=== PATIENT | female | born 1950 | race Caucasian/White ===

== ENCOUNTER 2017-10-05 07:58 | Emergency (ER) | payer MEDICARE, MEDICAID ==
[~2017-10-05] VITALS: Ht 162.6 cm; Wt 66.0 kg
[~2017-10-05 07:58] MED LIST: LEVO50TA5 PO; LOSA1TAB19 PO; METF10002 PO; OMEP40CA6 PO; TRAZ50TA18 PO
[2017-10-05 08:00] VITALS: BP 145/80
[2017-10-05] MEDS ORDERED: morphine SULFATE 10 MG/ML, 1ML ONE (08:53)
[2017-10-05] MEDS ORDERED: ONDANSETRON 2MG/ML, 2ML ONE (08:53)
[2017-10-05] MEDS ORDERED: SODIUM CHLORIDE 0.9% 1,000ML IVBOLUS ONE (09:00)
[2017-10-05] MEDS ORDERED: MORPHINE SULFATE 4 MG/ML, 1ML IVPush PRN (09:00)
[2017-10-05] MEDS ORDERED: ONDANSETRON 2MG/ML, 2ML IVPush ONE (09:00)
[2017-10-05 09:08] LABS: PATH.CAST-FLAG NOT PRESENT; SPERM-FLAG NOT PRESENT; SRC-FLAG NOT PRESENT; XTAL-FLAG NOT PRESENT; YLC-FLAG NOT PRESENT
[2017-10-05 09:16] LABS: HEMATOCRIT 39.6 % (34.6-47.8); HEMOGLOBIN 13.8 g/dL (11.7-16.4); WHITE BLOOD COUNT 8.1 x10^3/uL (3.4-10)
[2017-10-05 09:25] LABS: BLOOD UREA NITROGEN 14 mg/dL (7-18)
[2017-10-05] MEDS ORDERED: LOSA25TA5 PO (09:25)
[2017-10-05 09:29] LABS: ASPARTATE AMINO TRANSFERASE 9 U/L (15-37)
[2017-10-05] MEDS ORDERED: OMNIPAQUE 350 MG/ML, 100ML BOTTLE ONE (10:07)
== END 2017-10-05 10:54 | disposition home or self-care (01) ==
LOC: ED 09:08
DX: R10.31 Right lower quadrant pain (principal); E11.9 Type 2 diabetes mellitus without complications; E03.9 Hypothyroidism, unspecified; I10 Essential (primary) hypertension; Z90.49 Acquired absence of other specified parts of digestive tract
CPT/HCPCS: 36415; 74177; 80053; 81001; 85025; 96361; 96374; 96375; 99285; J2405; J7030; Q9967